=== PATIENT | female | born 1975 ===

== ENCOUNTER 2018-07-22 07:57 | Emergency (ER) | payer OTHER ==
[2018-07-22 08:01] VITALS: BMI 24.5
[2018-07-22 08:07] VITALS: O2SAT 98
--- NOTE | 2018-07-22 08:24 | ED PDOC ---
Arrival/HPI - General Chief Complaint: Back Pain Time Seen by Provider: 07/22/18 08:02 Historian: Patient - History of Present Illness Narrative History of Present Illness (Text): 07/22/18 08:19 A 43 year old female, with no significant past medical history , presents to the emergency department with a complaint of 1 week duration, mid-lower back pain. She notes that the pain has been worsening. She reports that the pain radiates down her left thigh to her knee. The patient states that she took Aleve yesterday with mild relief of her symptoms, but she woke up with worsening pain. 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 The patient states that the pain is exacerbated when she is sitting. Patient denies fevers, chills, headache, dizziness, abdominal pain, nausea, vomiting, diarrhea, neck pain, chest pain, shortness of breath, dyspnea on exertion, cough or any other complaint. PMD: None Time/Duration: 1 week Symptom Onset: Sudden Symptom Course: Unchanged Activities at Onset: Rest, Light Context: Home Past Medical History - Provider Review Nursing Documentation Reviewed: Yes - Cardiac Hx Cardiac Disorders: No - Pulmonary Hx Respiratory Disorders: No - Neurological Hx Neurological Disorder: No Hx Meningitis: Yes - HEENT Hx HEENT Disorder: No - Renal Hx Renal Disorder: No - Endocrine/Metabolic Hx Endocrine Disorders: No - Hematological/Oncological Hx Blood Disorders: No - Integumentary Hx Dermatological Disorder: No - Musculoskeletal/Rheumatological Hx Back Pain: Yes - Gastrointestinal Hx Gastrointestinal Disorders: No - Genitourinary/Gynecological Hx Genitourinary Disorders: No - Psychiatric Hx Psychophysiologic Disorder: No Hx Substance Use: No - Surgical History Hx Abdominal Aortic Aneurysm Repair: No Family/Social History - Physician Review Nursing Documentation Reviewed: Yes Family/Social History: No Known Family HX Smoking Status: Never Smoked Hx Alcohol Use: No Hx Substance Use: No Allergies/Home Meds Allergies/Adverse Reactions: Allergies No Known Allergies Allergy (Verified 07/22/18 08:01) Review of Systems - Physician Review All systems were reviewed & negative as marked: Yes - Review of Systems Constitutional: absent: Fevers Respiratory: absent: SOB, Cough Gastrointestinal: absent: Abdominal Pain, Diarrhea, Nausea, Vomiting Musculoskeletal: Back Pain (Mid- lower back pain). absent: Neck Pain Neurological: absent: Headache, Dizziness Physical Exam Vital Signs Reviewed: Yes Vital Signs Temp Pulse Resp BP Pulse Ox 07/22/18 08:07 98.1 F 84 16 122/74 98 Temperature: Afebrile Blood Pressure: Normal Pulse: Regular Respiratory Rate: Normal Appearance: Positive for: Well-Appearing, Non-Toxic, Comfortable Pain Distress: None Mental Status: Positive for: Alert and Oriented X 3 - Systems Exam Head: Present: Atraumatic, Normocephalic Pupils: Present: PERRL Extroacular Muscles: Present: EOMI Conjunctiva: Present: Normal Mouth: Present: Moist Mucous Membranes Neck: Present: Normal Range of Motion Respiratory/Chest: Present: Clear to Auscultation, Good Air Exchange. No: Respiratory Distress, Accessory Muscle Use Cardiovascular: Present: Regular Rate and Rhythm, Normal S1, S2. No: Murmurs Abdomen: No: Tenderness, Distention, Peritoneal Signs Back: Present: Pain with Leg Raise ((+) bilateral straight leg raise test at about 30 degrees.) Upper Extremity: Present: Normal Inspection. No: Cyanosis, Edema Lower Extremity: Present: Normal ROM (Limited ROM at the hip secondary to pain. ). No: Edema Neurological: Present: GCS=15, CN II-XII Intact, Speech Normal Skin: Present: Warm, Dry, Normal Color. No: Rashes Psychiatric: Present: Alert, Oriented x 3, Normal Insight, Normal Concentration Medical Decision Making ED Course and Treatment: 07/22/18 08:26 Impression: A 43 year old female presents to the emergency department with a complaint of 1 week duration mid lower back pain. Plan: -- Lumbar Spine X- Ray -- Tylenol, Flexeril, Decadron, and Toradol -- Reassess and disposition Prior Visits: Notes and results from previous visits were reviewed. Progress Notes: 07/22/18 11:15: Patient states that she is feeling better and requesting to go home. 07/22/18 11:22 patient was seen for acute lumbar radiculopathy, recurrent, no acute neuro deficits, patient stable for dc and outpt follow up - RAD Interpretation Narrative RAD Interpretations (Text): 07/22/18 11:23 07/22/18 10:43: Lumbar Spine X- Ray shows no fracture. Straightening of the Lumbar spine. Adapted Physical Education Teacher: ED Physician - Scribe Statement The provider has reviewed the documentation as recorded by the Scribe Faby Roberto Provider Mindy Attestation: All medical record entries made by the Mindy were at my direction and personally dictated by me. I have reviewed the chart and agree that the record accurately reflects my personal performance of the history, physical exam, medical decision making, and the department course for this patient. I have also personally directed, reviewed, and agree with the discharge instructions and disposition Disposition/Present on Arrival - Present on Arrival Any Indicators Present on Arrival: No History of DVT/PE: No History of Uncontrolled Diabetes: No Urinary Catheter: No History of Decub. Ulcer: No History Surgical Site Infection Following: None - Disposition Have Diagnosis and Disposition been Completed?: Yes Diagnosis: Radiculopathy of lumbosacral region Disposition: HOME/ ROUTINE Disposition Time: 11:19 Patient Plan: Discharge Condition: STABLE Discharge Instructions (ExitCare): Radiculopathy (DC) Additional Instructions: Return for any new or worsening symptoms especially numbness or weakness in the legs. Breana Willingham, thank you for letting us take care of you today. Your provider was Dr. Kirk Duran and you were treated for low back pain. The emergency medical care you received today was directed at your acute symptoms. If you were prescribed any medication, please fill it and take as directed. It may take several days for your symptoms to resolve. Return to the Emergency Department if your symptoms worsen, do not improve, or if you have any other problems. Please contact your doctor or call one of the physicians/clinics you have been referred to that are listed on the Patient Visit Information form that is included in your discharge packet. Bring any paperwork you were given at discharge with you along with any medications you are taking to your follow up visit. Our treatment cannot replace ongoing medical care by a primary care provider outside of the emergency department. Thank you for allowing the [facility] team to be part of your care today. If you had an X-Ray or CT scan: A Radiologist will review the ED reading if any change in treatment is needed we will contact you. If you had a blood, urine, or wound culture: It will take several days for the results, if any change in treatment is needed we will contact you. If you had an STI test: It will take 48 hours for the results. Please call after 1 week if you have not heard back. Prescriptions: Cyclobenzaprine [Flexeril] 5 mg PO TID #15 tab RX: Ketorolac Tromethamine [Toradol] 10 mg PO Q6H 5 Days #20 tab RX: Prednisone [Deltasone] 20 mg PO DAILY 7 Days #14 tablet Referrals: [facility] [Outside] - Follow up with primary Radha St MD [Medical Doctor] - Follow up with primary Forms: [facility] (Slovak), WORK NOTE
[2018-07-22] MEDS ORDERED: oxyCODONE 5 mg Immediate Release Tab PO STA (10:18)
[2018-07-22 10:20] VITALS: BP 119/80
[2018-07-22 11:34] VITALS: PULSE 83; RESP 18; TEMP 98
--- NOTE | 2018-07-22 12:16 | RAD ---
Date of service: 07/22/2018 PROCEDURE: Radiographs of the Lumbar Spine. HISTORY: radicular low back pain COMPARISON: No prior. FINDINGS: BONES: Normal alignment. No listhesis. No fracture. DISC SPACES: Unremarkable. OTHER FINDINGS: None. IMPRESSION: Unremarkable radiographs of the lumbar spine.
== END 2018-07-22 11:34 | disposition home or self-care (01) ==
LOC: ED 07:57
DX: M54.17 Radiculopathy, lumbosacral region (principal)
CPT/HCPCS: 72110; 96372; 99283; J1100; J1885